=== PATIENT | male | born 1975 | race Caucasian/White ===

== ENCOUNTER 2016-06-21 18:41 | Emergency (ER) | payer BC ==
[~2016-06-21] VITALS: Ht 180.3 cm; Wt 72.6 kg
== END 2016-06-21 20:35 | disposition short-term general hospital (02) ==
LOC: ER 18:41
DX: N13.2 Hydronephrosis with renal and ureteral calculous obstruction (principal); D72.829 Elevated white blood cell count, unspecified
CPT/HCPCS: J1885; J2405; J3010